=== PATIENT | male | born 1985 | race Caucasian/White ===

== ENCOUNTER 2016-12-17 21:48 | Emergency (ER) | payer SELFPAY ==
[~2016-12-17] VITALS: Ht 175.3 cm; Wt 90.0 kg
[2016-12-18 01:39] VITALS: BP 127/68
== END 2016-12-18 03:19 | disposition home or self-care (01) ==
LOC: EMS 21:50
DX: M79.5 Residual foreign body in soft tissue (principal); F17.210 Nicotine dependence, cigarettes, uncomplicated; F11.10 Opioid abuse, uncomplicated
CPT/HCPCS: 99284